=== PATIENT | male | born 1985 | race African-American/Black ===

== ENCOUNTER 2016-10-27 14:51 | Emergency (ER) | payer MEDICAID ==
[~2016-10-27] VITALS: Ht 165.1 cm; Wt 57.3 kg
[2016-10-27 14:53] VITALS: BP 121/80; PULSE 72; TEMP 98.5
[2016-10-27] MEDS ORDERED: COLACE 100100 MG/CAP PO (15:18)
[2016-10-27] MEDS ORDERED: ANUSOL-HC SUPPO25 MG RC (15:18)
== END 2016-10-27 15:39 | disposition home or self-care (01) ==
LOC: COL.ER 14:51
DX: K64.4 Residual hemorrhoidal skin tags (principal)

== ENCOUNTER 2018-11-15 14:11 | Emergency (ER) | payer MEDICAID ==
[~2018-11-15] VITALS: Ht 165.1 cm; Wt 65.9 kg
[~2018-11-15 14:11] MED LIST: ANUSOL-HC SUPPO25 MG RC; COLACE 100100 MG/CAP PO
[2018-11-15 14:26] VITALS: TEMP 98
[2018-11-15 16:55] VITALS: BP 114/71; PULSE 86
== END 2018-11-17 16:41 | disposition home or self-care (01) ==
LOC: COL.ER 14:11
DX: J98.01 Acute bronchospasm (principal)

== ENCOUNTER 2020-01-20 19:00 | Emergency (ER) | payer MEDICAID ==
[~2020-01-20] VITALS: Ht 165.1 cm; Wt 66.8 kg
[2020-01-20 19:05] VITALS: BP 130/73; PULSE 72; TEMP 98
[2020-01-20] MEDS ORDERED: ZYPREXA 5MG5 MG PO (19:13)
[2020-01-20] MEDS ORDERED: PRILOSEC 20MG20 MG PO (19:13)
== END 2020-01-20 19:50 | disposition home or self-care (01) ==
LOC: COL.ER 19:00
DX: S60.221A Contusion of right hand, initial encounter (principal); F17.210 Nicotine dependence, cigarettes, uncomplicated; W22.8XXA Striking against or struck by other objects, initial encounter

== ENCOUNTER 2020-05-24 19:59 | Emergency (ER) | payer MEDICAID ==
[~2020-05-24] VITALS: Ht 165.1 cm; Wt 63.6 kg
[~2020-05-24 19:59] MED LIST changes: +PRILOSEC 20MG20 MG PO; +ZYPREXA 5MG5 MG PO
[2020-05-24 20:08] VITALS: TEMP 98.8
[2020-05-24 21:03] LABS: BASO # 0.1 (0.0-0.2); BASO % 0.7 % (0.0-2.0); EOS # 0.2 (0.0-0.7); EOS % 2.2 % (0-4.0); GRAN # 4.2 (1.4-6.5); GRAN % 58.2 % (42.2-75.2); HEMATOCRIT 48.5 % (42.0-52.0); HEMOGLOBIN 16.2 g/dl (13.5-18.0); LYMPH # 2.2 (1.2-3.4); LYMPH % 29.9 % (20.0-51.0); MEAN CELL VOLUME 83 fl (80.0-100.0); MEAN CORPUSCULAR HEMOGLOBIN 28 pg (27.0-31.0); MEAN CORPUSCULAR HGB CONC 33 g/dl (33.0-37.0); MEAN PLATELET VOLUME 11.9 fl (7.4-10.4); MONO # 0.6 (0.1-0.6); MONO % 8.6 % (1.7-9.3); PLATELET COUNT 181 K/mm3 (130-400); RED BLOOD COUNT 5.87 M/mm3 (4.20-5.60); REDCELL DISTRIBUTION WIDTH-CV 12.7 % (11.5-14.5)
[2020-05-24 21:15] LABS: ALBUMIN 4.3 gm/dL (3.5-5.0); BILIRUBIN,TOTAL 0.5 mg/dL (0.0-1.0); CALCIUM 9.1 mg/dL (8.4-10.2); CREATININE, serum 1.17 (0.66-1.25); POTASSIUM 3.9 mmol/L (3.4-5.0); TOTAL PROTEIN 7.3 gm/dL (6.4-8.2)
[2020-05-24] MEDS ORDERED: ANUSOL-HC SUPPO25 MG RC (21:45)
[2020-05-24 21:52] VITALS: BP 135/92; PULSE 83
== END 2020-05-24 22:00 | disposition home or self-care (01) ==
LOC: COL.ER 19:59
PROVIDERS: Emergency Medicine
DX: K92.2 Gastrointestinal hemorrhage, unspecified (principal)